=== PATIENT | female | born 1945 | race Hispanic/Latino ===

== ENCOUNTER 2018-03-23 15:37 | Outpatient (CLI) | payer MEDICARE, MEDICAID | END 2018-03-23 15:38 | disposition home or self-care (01) | LOC: BICMAMMO 15:37 | PROVIDERS: ATTEND Nurse Practitioner Family | DX: Z12.31 Encounter for screening mammogram for malignant neoplasm of breast (principal) | CPT/HCPCS: 77063; 77067 ==

== ENCOUNTER 2020-03-31 21:56 | Inpatient (IN) | payer MEDICAID, MEDICARE, SELFPAY ==
[~2020-03-31 21:56] MED LIST: Iopamidol 370 76% 100 ML VIAL ONE
[2020-03-31 22:29] LABS: #Basophils 0.1 thou/uL (0.0-0.2); #Eosinphils 0.2 thou/uL (0.0-0.7); #Lymphocytes 4.1 thou/uL (1.20-3.40); #Neutrophils 7.6 thou/uL (1.40-6.50); %Eosinophils 1.9 % (0.0-10.0); %Lymphocytes 31.2 % (21.0-51.0); %Monocytes 7.4 % (0.0-10.0); %Neutrophils 58.5 % (42.0-75.0); Hemoglobin 13.5 g/dL (12.0-16.0); Mean Corpuscular HGB CONC 33.4 g/dL (32.0-36.0); Mean Corpuscular Hemoglobin 30.6 pg (27.0-31.0); Mean Corpuscular Volume 91.7 fL (78.0-98.0); Mean Platelet Volume 7.7 fL (7.4-10.4); Platelet Count 380 thou/uL (130-400); RBC Distribution Width 12.1 % (11.5-14.5); White Blood Cell (WBC) Count 13.1 thou/uL (4.8-10.8)
[2020-03-31 22:38] LABS: PTT 28.8 sec (22.9-36.1)
--- NOTE | 2020-03-31 22:38 | CT ---
CT BRAIN 03/31/20 PROVIDED CLINICAL HISTORY: Headache. FINDINGS: The ventricular system appears normal in size and morphology. There is no evidence for intracranial hemorrhage or mass effect. There is a small amount of fluid within the right maxillary sinus. The ext racranial soft tissues and osseous structures appear otherwise unremarkable. IMPRESSION: 1. No evidence for intracranial hemorrhage or mass effect. 2. Small amount of fluid within the right maxillary sinus. Correlate with concerns for acute sin usitis. POS: ANICETO
[2020-03-31 22:55] LABS: ALT (SGPT) 23 U/L (8-55); AST (SGOT) 17 U/L (5-34); Albumin 4.3 g/dL (3.5-5.0); Alkaline Phosphatase 171 U/L (40-110); Anion Gap 13 mmol/L (10-20); BUN (Urea Nitrogen) 13 mg/dL (7.0-18.7); Bilirubin, Total 0.3 mg/dL (0.2-1.2); Calc. Creatinine Clearance 0 mL/min (70-130); Carbon Dioxide 23 mmol/L (22-29); Chloride 108 mmol/L (98-107); Estimated GFR-MDRD Greater than 90; Globulin 3.5 g/dL (2.4-3.5); Glucose 121 mg/dL (70-105); Potassium 3.6 mmol/L (3.5-5.1); Protein, Total 7.8 g/dL (6.0-8.3); Sodium 140 mmol/L (136-145)
--- NOTE | 2020-03-31 23:01 | CT ---
CT ANGIOGRAM GREAT VESSELS NECK WITH IV CONTRAST AND 3D MIP RECONSTRUCTIONS CT ANGIOGRAM BRAIN WITH IV CONTRAST AND 3D MIP RECONSTRUCTIONS 03/31/20 PROVIDED CLINICAL HISTORY: Syncopal episode. FINDINGS: There is a normal three vessel configuration of the great vessels at the arch. The great vessels of t he neck demonstrate no evidence for focal vessel stenosis or dissection. There is no evidence for focal vessel stenosis, branch occlusion, or aneurysm involving the intracran ial circulation. The incidentally imaged regional soft tissues appear unremarkable. IMPRESSION: 1. Normal CT angiogram great vessels neck. 2. Normal CT angiogram brain. POS: ANICETO
--- NOTE | 2020-03-31 23:05 | RAD ---
PORTABLE CHEST: 03/31/20 PROVIDED CLINICAL HISTORY: Headache. FINDINGS: Cardiac and mediastinal silhouette is within normal limits. No focal consolidation, pleural fluid or pneumothorax apparent. IMPRESSION: As above. POS: ANICETO
[2020-03-31 23:15] LABS: CKMB 0.7 ng/mL (0-6.6)
[2020-04-01] MEDS ORDERED: Docusate 100 MG CAP PO PRN (01:15)
[2020-04-01] MEDS ORDERED: Labetalol HCl 100 MG/20 ML VIAL SLOW IVP PRN (01:15)
[2020-04-01] MEDS ORDERED: Mag-Al 1200 mg/1200 mg/30 ML UDCUP PO PRN (01:15)
[2020-04-01] MEDS ORDERED: hydrALAZINE 20 MG/ML VIAL SLOW IVP PRN (01:15)
[2020-04-01] MEDS ORDERED: niCARdipine 25 MG in Sodium Chloride 0.9% 250 ML 240 ML IVPB PRN (01:15)
[2020-04-01] MEDS ORDERED: Communication Order-Pharmacy FS SCH (01:15)
--- NOTE | 2020-04-01 01:21 | PDOC.HHP ---
Hospitalist HPI - History of Present Illness R sided weakness, dysarthria History of Present Illness: Patient is a 41 year old female with PMH CVA, HTN who presents to ED for worsening of chronic R sided weakness and new dysarthria. Patient reports sudden syncopal episode today after a fit of coughing followed by worsening of chronic R sided weakness. there was no prodrome, remembers falling, did not hit head. family found patient on ground alert w/ GCS of 14. Patient had a CVA a year ago with residual R sided weakness which is now worsened than baseline, she also developed dysarthria. She takes losartan, ASA, statin and sees a PCP in [place] who prescribes her medications, unsure what her BP is at home since she does not check it. In ED, last known well time 2130 was within tPA window, patient adm inistered tPA and she reports improvement afterwards though still very weak. She had mildly elevated troponin, no chest pain or shortness of breath, EKG without acute findings. CT head and CTA head/neck did not show acute findings, CXR unremarkable, patient admitted to CCU for post tPA monitoring. Hospitalist ROS - Review of Systems Constitutional: denies: fever, chills, sweats, weakness, malaise, other Eyes: denies: pain, vision change, conjunctivae inflammation, eyelid inflammation, redness, other ENT: denies: ear pain, ear discharge, nose pain, nose discharge, nose congesti on, mouth pain, mouth swelling, throat pain, throat swelling, other Respiratory: denies: cough, dry, shortness of breath, hemoptysis, SOB with excertion, pleuritic pain, sputum, wheezing, other Cardiovascular: denies: chest pain, palpitations, orthopnea, paroxysmal noc. dyspnea, edema, light headedness, other Gastrointestinal: denies: nausea, vomiting, abdominal pain, diarrhea, constipation, melena, hematochezia, other Genitourinary: denies: dysuria, frequency, incontinence, hematuria, retention, other Musculoskeletal: denies: neck pain, shoulder pain, arm pain, back pain, hand pain, leg pain, foot pain, other Skin: denies: rash, lesions, sera, bruising, other Neurological: reports: weakness (R sided per HPI), numbness (R sided per HPI), change in speech (dysarthria, slow speech). denies: incoordination, confusion, seizures, other All other systems reviewed; all pertinent +/- noted in HPI/Subj - Medication Medications: losartan MonMar 31, 2020 23:33 BINU Gillette Lee tablet : Strength - 25 mg : ORAL Patient Dose: Unknown.unknown dose. atorvastatin MonMar 31, 2020 23:33 BINU Gillette Lee tablet : Strength - 20 mg : ORAL Patient Dose: 1 tab(s) Oral once a day (in the morning). aspirin oral MonMar 31, 2020 23:34 BINU Gillette Lee tablet : Strength - 81 mg : ORAL Patient Dose: 100 mg Oral once a day (in the morning). Hospitalist History - Past Medical History Other Medical History: HTN CVA - Past Surgical History Past Surgical History: reports: no pertinent history - Family History Family History: reports: no pertinent history - Social History Smoking Status: Never smoker Alcohol: reports: None Drugs: reports: none - Exam General Appearance: NAD, awake alert Eye: PERRL, anicteric sclera ENT: normocephalic atraumatic, no oropharyngeal lesions, moist mucosa Neck: supple, symmetric, no JVD, no thyromegaly, no lymphadenopathy, no carotid bruit Heart: RRR, no murmur, no gallops, no rubs, normal peripheral pulses Respiratory: CTAB, no wheezes, no rales, no ronchi, normal chest expansion, no tachypnea, normal percussion Gastrointestinal: soft, non-tender, non-distended, normal bowel sounds, no palpable masses, no hepatomegaly, no splenomegaly, no bruit Extremities: no cyanosis, no clubbing, no edema Skin: normal turgor, no lesions, no rashes Neurological - other findings: R side muscle group strength 2/5, reduced sensation R, no facial droop Musculoskeletal: normal tone, normal strength, no muscle wasting Psychiatric: normal affect, normal behavior, A&O x 3 Hospitalist Results - Labs Result Diagrams: 03/31/20 22:20 03/31/20 22:20 Lab results: WBC 13.1 thou/uL (4.8-10.8) H 03/31/20 22:20 Hgb 13.5 g/dL (12.0-16.0) 09/22/20 22:20 Hct 40.3 % (36.0-47.0) 03/31/20 22:20 MCV 91.7 fL (78.0-98.0) 03/31/20 22:20 Plt Count 380 thou/uL (130-400) 03/31/20 22:20 Neutrophils % 58.5 % (42.0-75.0) 03/31/20 22:20 Sodium 140 mmol/L (136-145) 03/31/20 22:20 Potassium 3.6 mmol/L (3.5-5.1) 03/31/20 22:20 Chloride 108 mmol/L (98-107) H 03/31/20 22:20 Carbon Dioxide 23 mmol/L (22-29) 03/31/20 22:20 BUN 13 mg/dL (7.0-18.7) 03/31/20 22:20 Creatinine 0.69 mg/dL (0.6-1.1) 03/31/20 22:20 Glucose 121 mg/dL (70-105) H 03/31/20 22:20 Calcium 9.0 mg/dL (7.8-10.44) 03/31/20 22:20 Total Bilirubin 0.3 mg/dL (0.2-1.2) 03/31/20 22:20 AST 17 U/L (5-34) 03/31/20 22:20 ALT 23 U/L (8-55) 03/31/20 22:20 Alkaline Phosphatase 171 U/L (40-110) H 03/31/20 22:20 CK-MB (CK-2) 0.7 ng/mL (0-6.6) 03/31/20 22:20 Troponin I 0.045 ng/mL (< 0.028) H 03/31/20 22:20 Serum Total Protein 7.8 g/dL (6.0-8.3) 03/31/20 22:20 Albumin 4.3 g/dL (3.5-5.0) 03/31/20 22:20 Additional comment: ED labs, imaging reports, ed documents reviewed RADIOLOGY MonMar 31, 2020 23:50 DO Mcknight Matthew XR Chest 1 View Portable Observe DT: MonMar 31, 2020 22:25 CXRP PORTABLE CHEST: 03/31/20 PROVIDED CLINICAL HISTORY: Headache. FINDINGS: Cardiac and mediastinal silhouette is within normal limits. No focal consolidation, pleural fluid or pneumothorax apparent. IMPRESSION: As above. POS: JMT . RADIOLOGY MonMar 31, 2020 23:50 DO Mcknight Matthew CTA Angio Neck W WO Con Observe DT: MonMar 31, 2020 22:[address] ANGIOGRAM GREAT VESSELS NECK WITH IV CONTRAST AND 3D MIP RECONSTRUCTIONS CT ANGIOGRAM BRAIN WITH IV CONTRAST AND 3D MIP RECONSTRUCTIONS 03/31/20 PROVIDED CLINICAL HISTORY: Syncopal episode. FINDINGS: There is a normal three vessel configuration of the great vessels at the arch. The great vessels of t he neck demonstrate no evidence for focal vessel stenosis or dissection. There is no evidence for focal vessel stenosis, branch occlusion, or aneurysm involving the intracran ial circulation. The incidentally imaged regional soft tissues appear unremarkable. IMPRESSION: 1. Normal CT angiogram great vessels neck. 2. Normal CT angiogram brain. POS: JMT . RADIOLOGY MonMar 31, 2020 23:50 DO Mcknight Matthew CTA Angio Head W WO Con Observe DT: MonMar 31, [address] ANGIOGRAM GREAT VESSELS NECK WITH IV CONTRAST AND 3D MIP RECONSTRUCTIONS CT ANGIOGRAM BRAIN WITH IV CONTRAST AND 3D MIP RECONSTRUCTIONS 03/31/20 PROVIDED CLINICAL HISTORY: Syncopal episode. FINDINGS: There is a normal three vessel configuration of the great vessels at the arch. The great vessels of t he neck demonstrate no evidence for focal vessel stenosis or dissection. There is no evidence for focal vessel stenosis, branch occlusion, or aneurysm involving the intracran ial circulation. The incidentally imaged regional soft tissues appear unremarkable. IMPRESSION: 1. Normal CT angiogram great vessels neck. 2. Normal CT angiogram brain. POS: JMT . RADIOLOGY MonMar 31, 2020 23:[address] Brain WO Con Observe DT: MonMar 31, [address] BRAIN 03/31/20 PROVIDED CLINICAL HISTORY: Headache. FINDINGS: The ventricular system appears normal in size and morphology. There is no evidence for intracranial hemorrhage or mass effect. There is a small amount of fluid within the right maxillary sinus. The ext racranial soft tissues and osseous structures appear otherwise unremarkable. IMPRESSION: 1. No evidence for intracranial hemorrhage or mass effect. 2. Small amount of fluid within the right maxillary sinus. Correlate with concerns for acute sin usitis. POS: JMT - EKG Interpretation EKG: NSR rate [address] changes or AVB Hospitalist H&P A/P - Plan Plan: Patient is a 41 year old female with PMH CVA, HTN who presents to ED for worsening of chronic R sided weakness and new dysarthria. # presumed acute ischmic stroke s/p tPA # elevated troponin # hyperglycemia sudden syncopal episode 2129 today after a fit of coughing followed by worsening of chronic R sided weakness. family found patient on ground alert w/ GCS of 14. Patient had a CVA a year ago with residual R sided weakness which is now worsened than baseline, she also developed dysarthria. She takes losartan, ASA, statin and sees a PCP in [place] who prescribes her medications, unsure what her BP is at home since she does not check it. In ED, last known well time 2129 was within tPA window, patient administered tPA and she reports improvement afterwards though still very weak. She had mildly elevated troponin, no chest pain or shortness of breath, EKG without acute findings. CT head and CTA head/neck did not show acute findings, CXR unremarkable, patient admitted to CCU for post tPA monitoring. - admit to CCU - monitor overnight, no lab draws, repeat CT head in AM, consult neurology/stroke team, MRI brain - echo - for elevated sugar, check A1C, hold SSI for 24 hours after tPA - permissive HTN per order set, monitor BP # leukocytosis - likely secondary to above acute stressors, monitor closely DVT ppx - start in 24 hours GI ppx full code
[2020-04-01] MEDS ORDERED: Ondansetron ODT 4 MG TAB SL PRN (01:30)
[2020-04-01] MEDS ORDERED: Ondansetron PF 4 MG/2 ML Vial IVP PRN (01:30)
[2020-04-01] MEDS: Sodium Chloride 0.9% 1,000 ML IV SCH ×2 (01:45→12:15)
[2020-04-01 01:49] LABS: Troponin I 0.026 ng/mL (< 0.028)
[2020-04-01 06:18] LABS: PTT 30.8 sec (22.9-36.1); Prothrombin Time 13.5 sec (12.0-14.7)
[2020-04-01 06:38] LABS: ALT (SGPT) 20 U/L (8-55); AST (SGOT) 17 U/L (5-34); Albumin 3.6 g/dL (3.5-5.0); Alkaline Phosphatase 141 U/L (40-110); Anion Gap 12 mmol/L (10-20); BUN (Urea Nitrogen) 10 mg/dL (7.0-18.7); Bilirubin, Total 0.3 mg/dL (0.2-1.2); Calc. Creatinine Clearance 152 mL/min (70-130); Calcium 8.4 mg/dL (7.8-10.44); Carbon Dioxide 22 mmol/L (22-29); Cardiac Risk 4.7 (Less than 4.5); Chloride 108 mmol/L (98-107); Cholesterol 186 mg/dl (< 200 Desired); Estimated GFR-MDRD Greater than 90; Glucose 119 mg/dL (70-105); HDL Cholesterol 40 mg/dL (>60 Neg Risk); LDL Cholesterol, Calculated 108 mg/dL; Potassium 3.6 mmol/L (3.5-5.1); Protein, Total 6.6 g/dL (6.0-8.3); Sodium 138 mmol/L (136-145); Triglycerides 191 mg/dL (Less than 150)
[2020-04-01 06:39] LABS: Troponin I 0.027 ng/mL (< 0.028)
--- NOTE | 2020-04-01 07:39 | PDOC.HOSPP ---
- Subjective Encounter Date: 04/01/20 Encounter Time: 07:38 Subjective: alert, oriented, no complaints - Objective Vital Signs & Weight: Vital Signs (12 hours) Temp Pulse Resp BP Pulse Ox 04/01/20 04:00 98.4 F 04/01/20 01:15 98.0 F 65 20 119/68 100 04/01/20 01:00 98.0 F 99 04/01/20 00:51 98.0 F 65 20 115/69 100 Weight Weight 172 lb 6.424 oz Most Recent Monitor Data Heart Rate from ECG 66 NIBP 113/66 NIBP BP-Mean 81 Respiration from ECG 20 SpO2 100 I&O: 03/31/20 04/01/20 04/02/20 06:59 06:59 06:59 Intake Total 510 Output Total 300 Balance 210 Result Diagrams: 03/31/20 22:20 04/01/20 06:00 Additional Labs: Accuchecks 03/31/20 22:27 POC Glucose 134 H Hospitalist ROS - Medication Medications: Active Medications Generic Name Dose Route Start Last Admin Trade Name Isaak PRN Reason Stop Dose Admin Sodium Chloride 1,000 mls @ 100 mls/hr 04/01/20 01:30 04/01/20 01:45 Normal Saline 0.9% IV 1,000 mls .Q10H MANJINDER Administration Miscellaneous Information 1 each 04/01/20 01:15 04/01/20 02:44 Communication Order-Pharmacy FS 04/01/20 23:59 Not Given NOW MANJINDER - Exam Neck: no JVD Heart: RRR, no murmur Respiratory: CTAB Gastrointestinal: soft, normal bowel sounds Extremities: no edema Neurological - other findings: R spasyic hemiplegia Hosp A/P (1) Syncope Code(s): R55 - SYNCOPE AND COLLAPSE Status: Acute (2) HTN (hypertension) Code(s): I10 - ESSENTIAL (PRIMARY) HYPERTENSION Status: Acute (3) Dyslipidemia Code(s): E78.5 - HYPERLIPIDEMIA, UNSPECIFIED Status: Acute (4) Hemiplegia affecting dominant side Code(s): G81.90 - HEMIPLEGIA, UNSPECIFIED AFFECTING UNSPECIFIED SIDE Status: Acute - Plan post TPA MRI pending statin, antihypertansive prolactin level discuss with neuro
--- NOTE | 2020-04-01 07:49 | CT ---
CT OF THE BRAIN WITHOUT CONTRAST: Date: 04/01/2020 COMPARISON: 03/31/2020. HISTORY: Follow-up stroke with syncope and headache. TECHNIQUE: Multiple contiguous axial images were obtained in a CT of the brain without contrast. FINDINGS: The brain is normal in morphology and attenuation without focal lesions or confluent areas of infarct ion. There is no evidence of hydrocephalus, intracranial hemorrhage, or extra-axial fluid collection. The calvarium and overlying soft tissues are unremarkable. The visualized paranasal sinuses and masto id air cells are well aerated. IMPRESSION: No evidence of acute intracranial abnormality. POS: EAA
[2020-04-01] MEDS: Losartan 25 MG TAB PO SCH (09:51)
--- NOTE | 2020-04-01 13:05 | CON ---
NEUROLOGY CONSULTATION DATE OF CONSULTATION: 04/01/2020 REASON FOR CONSULTATION: Right hemiparesis, dysarthria, syncope. HISTORY OF PRESENT ILLNESS: Ms. Mikki Anderson is a 41-year-old female with medical history significant for prior stroke, hypertension, presented to the emergency room with worsening right-sided weakness and new onset dysarthria. The history is taken from the patient and the with the help of a still operator gin. According to the , around 7:30 p.m. yesterday she was coughing and was short of breath and passed out. When she woke up, she was confused and unable to talk and apparently, the episode lasted until 1:00 a.m. Per patient, she had residual right-sided weakness from old stroke which became worsened yesterday evening. She has been compliant with the medication and has been taking aspirin, statin, and losartan, which was prescribed by a PCP in [place]. In the emergency room, she arrived around 2130 hours and was administered tPA with improvement of the symptoms afterwards speech is almost back to the baseline. CT head was done, which was negative for acute intracranial pathology. CT of the head and neck was also unremarkable. Chest x-ray was unremarkable. She was admitted to the CCU for post tPA monitoring. - Review of Systems Constitutional: denies: fever, chills, sweats, weakness, malaise, other Eyes: denies: pain, vision change, conjunctivae inflammation, eyelid inflammation, redness, other ENT: denies: ear pain, ear discharge, nose pain, nose discharge, nose congestion, mouth pain, mouth swelling, throat pain, throat swelling, other Respiratory: denies: cough, dry, shortness of breath, hemoptysis, SOB with excertion, pleuritic pain, sputum, wheezing, other Cardiovascular: denies: chest pain, palpitations, orthopnea, paroxysmal noc. dyspnea, edema, light headedness, other Gastrointestinal: denies: nausea, vomiting, abdominal pain, diarrhea, constipation, melena, hematochezia, other Genitourinary: denies: dysuria, frequency, incontinence, hematuria, retention, other Musculoskeletal: denies: neck pain, shoulder pain, arm pain, back pain, hand pain, leg pain, foot pain, other Skin: denies: rash, lesions, sera, bruising, other Neurological: reports: weakness numbness change in speech . denies: incoordination, confusion, seizures, other All other systems reviewed; all pertinent +/- noted in HPI/Subj HOME MEDICATIONS: 1. Losartan 25 mg daily. 2. Atorvastatin 20 mg once daily. 3. Aspirin 81 mg daily. PAST MEDICAL HISTORY: Hypertension, prior CVA. PAST SURGICAL HISTORY: Not significant. FAMILY HISTORY: No family history of stroke. SOCIAL HISTORY: The patient denies smoking, alcohol, illegal drug use. - Objective Vital Signs & Weight: Vital Signs (12 hours) Temp Pulse Resp BP Pulse Ox 04/01/20 04:00 98.4 F 04/01/20 01:15 98.0 F 65 20 119/68 100 04/01/20 01:00 98.0 F 99 04/01/20 00:51 98.0 F 65 20 115/69 100 Weight Weight 172 lb 6.424 oz Most Recent Monitor Data Heart Rate from ECG 66 NIBP 113/66 NIBP BP-Mean 81 Respiration from ECG 20 SpO2 100 I&O: 03/31/20 04/01/20 04/02/20 06:59 06:59 06:59 Intake Total 510 Output Total 300 Balance 210 Additional Labs: Accuchecks 03/31/20 22:27 POC Glucose 134 H Active Medications Generic Name Dose Route Start Last Admin Trade Name Isaak PRN Reason Stop Dose Admin Sodium Chloride 1,000 mls @ 100 mls/hr 04/01/20 01:30 04/01/20 01:45 Normal Saline 0.9% IV 1,000 mls .Q10H MANJINDER Administration Miscellaneous Information 1 each 04/01/20 01:15 04/01/20 02:44 Communication Order-Pharmacy FS 04/01/20 23:59 Not Given NOW [facility] - Physical Exam General Appearance: NAD, awake alert Eye: PERRL, anicteric sclera ENT: normocephalic atraumatic, no oropharyngeal lesions, moist mucosa Neck: supple, symmetric, no JVD, no thyromegaly, no lymphadenopathy, no carotid bruit Heart: RRR, no murmur, no gallops, no rubs, normal peripheral pulses Respiratory: CTAB, no wheezes, no rales, no ronchi, normal chest expansion, no tachypnea, normal percussion Gastrointestinal: soft, non-tender, non-distended, normal bowel sounds, no palpable masses, no hepatomegaly, no splenomegaly, no bruit Extremities: no cyanosis, no clubbing, no edema Skin: normal turgor, no lesions, no rashes Neurological -Mental status; the patient is alert and oriented to person, place, and time. Speech is clear. Cranial nerves 2 through 12 intact. Motor, muscle tone and bulk are normal. Strength, right hemiparesis. . Sensory, decreased sensation on the right . Gait deferred due to patient's safety reason. DATA REVIEWED: I reviewed the labs, which was consistent with hyperglycemia, glucose of 121 and white count of 13.1. Head CT was reviewed, which was negative for acute intracranial pathology. CTA of the head and neck was negative for acute hemodynamically significant stenosis. Chest x-ray was unremarkable. EKG showed normal sinus rhythm with heart rate of 76 beats per minute. Lab results: WBC 13.1 thou/uL (4.8-10.8) H 03/31/20 22:20 Hgb 13.5 g/dL (12.0-16.0) 03/31/20 22:20 Hct 40.3 % (36.0-47.0) 03/31/20 22:20 MCV 91.7 fL (78.0-98.0) 03/31/20 22:20 Plt Count 380 thou/uL (130-400) 03/31/20 22:20 Neutrophils % 58.5 % (42.0-75.0) 03/31/20 22:20 Sodium 140 mmol/L (136-145) 03/31/20 22:20 Potassium 3.6 mmol/L (3.5-5.1) 03/31/20 22:20 Chloride 108 mmol/L (98-107) H 03/31/20 22:20 Carbon Dioxide 23 mmol/L (22-29) 03/31/20 22:20 BUN 13 mg/dL (7.0-18.7) 03/31/20 22:20 Creatinine 0.69 mg/dL (0.6-1.1) 03/31/20 22:20 Glucose 121 mg/dL (70-105) H 03/31/20 22:20 Calcium 9.0 mg/dL (7.8-10.44) 03/31/20 22:20 Total Bilirubin 0.3 mg/dL (0.2-1.2) 03/31/20 22:20 AST 17 U/L (5-34) 03/31/20 22:20 ALT 23 U/L (8-55) 03/31/20 22:20 Alkaline Phosphatase 171 U/L (40-110) H 03/31/20 22:20 CK-MB (CK-2) 0.7 ng/mL (0-6.6) 03/31/20 22:20 Troponin I 0.045 ng/mL (< 0.028) H 03/31/20 22:20 Serum Total Protein 7.8 g/dL (6.0-8.3) 03/31/20 22:20 Albumin 4.3 g/dL (3.5-5.0) 03/31/20 22:20 ASSESSMENT AND PLAN: (1) Syncope Code(s): R55 - SYNCOPE AND COLLAPSE Status: Acute (2) HTN (hypertension) Code(s): I10 - ESSENTIAL (PRIMARY) HYPERTENSION Status: Acute (3) Dyslipidemia Code(s): E78.5 - HYPERLIPIDEMIA, UNSPECIFIED Status: Acute (4) Hemiplegia affecting dominant side Code(s): G81.90 - HEMIPLEGIA, UNSPECIFIED AFFECTING UNSPECIFIED SIDE Status: Acute Ms. Mikki Anderson is a 41-year-old female with medical history significant for prior cerebrovascular accident and hypertension, presented to the emergency room with an episode of loss of consciousness followed by confusion and worsening right-sided weakness with new dysarthria. There is also concern about seizure with Haja paralysis since prior stroke had become epileptogenic focus. She is status post tPA and has been stable. Continue neuro checks every [address] 24 hours post tPA to rule out bleed. Telemetry. Hold antiplatelets and anticoagulants for the next 24 hours post tPA. Continue stroke workup once the patient is stable with MRI of the brain and 2D echocardiogram. Continue telemetry. EEG reviewed and was negative for seizure activity. Continue home medications. Continue medical management per primary team. PT/OT/Speech. Permissive control of blood pressure at this time. Strict control of blood glucose. Check hemoglobin A1c, fasting lipid panel, and TSH. DVT prophylaxis with SCD. We will continue to follow. Thank you for the consult. Job ID: [id number] [facility]ITALCarly
[2020-04-01] MEDS: Acetaminophen 325 MG TAB PO PRN ×2 (13:57→20:25)
--- NOTE | 2020-04-01 14:04 | EEG ---
DATE OF SERVICE: 04/01/2020 ATTENDING PHYSICIAN: Narcisa Lopez MD This EEG was performed using 24-channel [employer] video digital EEG machine with 24-disk electrodes. This was an extended 2 hours 4 minutes of inpatient video EEG recording. Digital analysis of the EEG was done for spike and seizure detection, which revealed no abnormalities. BACKGROUND: The posterior background rhythm was 9 to 10 Hz. The background rhythm attenuates with eye opening and enhances with eye closure. HYPERVENTILATION: Not performed. PHOTIC STIMULATION: No significant response seen with photic stimulation. SLEEP: Drowsiness and sleep are observed. EEG DIAGNOSIS: Normal awake, drowsy, and sleep EEG. Job ID: [id number]
--- NOTE | 2020-04-01 15:25 | MRI ---
Exam: Brain MRI without contrast HISTORY: CVA. Syncope. Headache. COMPARISON: None FINDINGS: Calvarial marrow signal intensity: T1 marrow signal intensity of the calvarium. Correlate for anemia or marrow infiltrative process. Gradient echo sequence: No hemorrhage Brain parenchyma: No mass, mass effect or midline shift. Brain volume, age-appropriate. Cortical richards-white matter differentiation: Preserved Restricted diffusion: Central arterial flow voids are maintained. Absent restricted diffusion White matter signal intensities:No significant T2 or FLAIR white matter hyperintensities. Sinuses: Adequate aeration of the paranasal sinuses and mastoid air cells. IMPRESSION: 1. Absent restricted diffusion. No acute infarct. 2. T1 marrow signal hypointensity of the calvarium. Correlate for marrow infiltrative process versus anemia.
[2020-04-01] MEDS: Atorvastatin Calcium 20 MG TAB PO SCH (20:25)
[2020-04-01] MEDS ORDERED: Atorvastatin Calcium 40 MG TAB PO SCH (21:00)
--- NOTE | 2020-04-02 00:55 | CON ---
DATE OF CONSULTATION: 04/01/2020 HISTORY OF PRESENT ILLNESS: Ms. Anderson is a 41-year-old female. Her is Macedonian-speaking. He provided most of the information with one of the nurses, who interpreted. She has had a stroke in the past apparently. It is unclear whether or not she has a hypercoagulable state. She also has a history of hypertension. She presented with right-sided weakness and dysarthria. She received tPA in the emergency room. Apparently, her right-sided strength has improved. I was consulted to see her because of her presence in the ICU. Her speech has improved as well. PAST MEDICAL HISTORY: Remarkable for hypertension and CVA. FAMILY HISTORY: Negative for hypercoagulable states or CVA. MEDICATIONS: She is on losartan, atorvastatin, and aspirin prior to admission. SOCIAL HISTORY: She is nonsmoker, nondrinker, nondrug user. REVIEW OF SYSTEMS: Otherwise negative. PHYSICAL EXAMINATION: VITAL SIGNS: Blood pressure 113/66, heart rate is 80 respiratory rate is 20. GENERAL: She is in no distress. She is having an EEG done when I saw her. LUNGS: Clear. HEART: Regular rhythm. ABDOMEN: Soft. EXTREMITIES: Without clubbing, cyanosis, or edema. She is slightly weak to a right-sided triage register nurse when I evaluated her. She has had an echocardiogram, it shows normal ejection fraction. IMPRESSION: Cerebrovascular accident. With her history of another CVA in the past and the fact that she is in her 40s, I would wonder about a hypercoagulable state such as antithrombin III deficiency. I will send the thrombosis panel. I know this is not likely, but it is certainly something that needs to be ruled out in my opinion. I met with the and answered all of his questions via the nurse longwall headgate operator. TIME SPENT: This is a 70-minute consult, 50% of the time was spent on the unit, coordinating care. Job ID: [id number] MTDD
[2020-04-02 01:25] LABS: INR-International Normal Ratio 1.1; PTT 30.5 sec (22.9-36.1); Prothrombin Time 13.8 sec (12.0-14.7)
[2020-04-02 01:26] LABS: D-Dimer Test 0.59 *mcg/mL (0.27-0.43)
[2020-04-02] MEDS: Sodium Chloride 0.9% 1,000 ML IV SCH ×2 (02:12→02:13)
[2020-04-02 03:51] LABS: Hemoglobin A1c 6.1 % (4.0-6.0)
[2020-04-02] MEDS: Losartan 25 MG TAB PO SCH (08:51)
[2020-04-02] MEDS: Acetaminophen 325 MG TAB PO PRN (08:51)
[2020-04-02] MEDS: Enoxaparin Sodium 40 MG/0.4 ML SYRINGE SC SCH (08:51)
[2020-04-02] MEDS ORDERED: Aspirin 325 mg Enteric Coated Tablet PO SCH (09:00)
[2020-04-02 11:02] VITALS: BMI 30.5
[2020-04-02 11:12] LABS: Factor VIII Test 206.2 % ACTIVE (56-157)
--- NOTE | 2020-04-02 11:34 | PDOC.HOSPP ---
- Subjective Encounter Date: 04/02/20 Encounter Time: 11:22 Subjective: alert, oriented , back to normal for her - Objective Vital Signs & Weight: Vital Signs (12 hours) Temp Pulse Pulse BP BP Pulse Ox Pulse Ox 04/02/20 10:32 80 84 103/68 114/65 99 04/02/20 08:00 98.1 F 100 04/02/20 04:00 97.6 F 04/02/20 00:00 98.5 F Pulse Ox 04/02/20 10:32 100 04/02/20 08:00 04/02/20 04:00 04/02/20 00:00 Weight Weight 173 lb 4.533 oz Most Recent Monitor Data Heart Rate from ECG 66 NIBP 110/68 NIBP BP-Mean 82 Respiration from ECG 20 SpO2 100 I&O: 04/01/20 04/02/20 04/03/20 06:59 06:59 06:59 Intake Total 510 1939 Output Total 300 840 300 Balance 210 1099 -300 Result Diagrams: 03/31/20 22:20 04/01/20 06:00 Hospitalist ROS - Medication Medications: Active Medications Generic Name Dose Route Start Last Admin Trade Name Freq PRN Reason Stop Dose Admin Acetaminophen 650 mg 04/01/20 01:15 04/02/20 08:51 Acetaminophen 325 Mg Tab PO 650 mg Q6H PRN Administration Headache/Fever/Mild Pain (1-3) Aspirin 325 mg 04/02/20 09:00 04/02/20 08:51 Aspirin 325 Mg Enteric Coated Tablet PO 325 mg DAILY MANJINDER Administration Atorvastatin Calcium 20 mg 04/01/20 21:00 04/01/20 20:25 Atorvastatin Calcium 20 Mg Tab PO 20 mg HS MANJINDER Administration Enoxaparin Sodium 40 mg 04/02/20 09:00 04/02/20 08:51 Enoxaparin Sodium 40 Mg/0.4 Ml Syringe SC 40 mg 0900 MANJINDER Administration Sodium Chloride 1,000 mls @ 100 mls/hr 04/01/20 01:30 04/02/20 02:13 Normal Saline 0.9% IV 1,000 mls .Q10H MANJINDER Administration Losartan Potassium 25 mg 04/01/20 09:00 04/02/20 08:51 Losartan 25 Mg Tab PO 25 mg DAILY MANJINDER Administration Sodium Chloride 10 ml 04/01/20 09:00 04/01/20 20:26 Flush - Normal Saline 10 Ml Syringe IVF 10 ml Q12HR MANJINDER Administration - Exam General Appearance: awake alert Neck: no JVD Heart: RRR, no murmur Respiratory: CTAB Gastrointestinal: soft, normal bowel sounds Extremities: no edema Neurological: cranial nerve grossly intact Neurological - other findings: strength 4+ R side, 5 on L Hosp A/P (1) TIA (transient ischemic attack) Code(s): G45.9 - TRANSIENT CEREBRAL ISCHEMIC ATTACK, UNSPECIFIED Status: Acute (2) Syncope Code(s): R55 - SYNCOPE AND COLLAPSE Status: Acute (3) HTN (hypertension) Code(s): I10 - ESSENTIAL (PRIMARY) HYPERTENSION Status: Acute Qualifiers: Hypertension type: essential hypertension Qualified Code(s): I10 - Essential (primary) hypertension (4) Dyslipidemia Code(s): E78.5 - HYPERLIPIDEMIA, UNSPECIFIED Status: Acute (5) Hemiplegia affecting dominant side Code(s): G81.90 - HEMIPLEGIA, UNSPECIFIED AFFECTING UNSPECIFIED SIDE Status: Acute - Plan MRI no damage obtain CT braib to R/O bleeding then, ASA, plavix, High dose statin
--- NOTE | 2020-04-02 11:43 | PRG ---
DATE OF SERVICE: 04/02/2020 SUBJECTIVE: Ms. Anderson has significant improvement in right-sided strength today. OBJECTIVE: VITAL SIGNS: Have been stable. Blood pressure is 110/68, heart rate is in the 60s, and respiratory rate is 20. LUNGS: Clear. HEART: Regular rhythm. ABDOMEN: Soft. EXTREMITIES: Without edema. LABORATORY DATA: She has no new labs today. Hemoglobin A1c 6.1. 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 Surprisingly, no infarct was seen on MRI. We would wonder if this is Haja paralysis since the MRI did not show any CVA. The possibility is that tPA was effective. In any event, Neurology is following. We will follow as long as she is in the Critical Care Unit. I would think she would be a candidate to move out of the Critical Care Unit. Job ID: [id number]
--- NOTE | 2020-04-02 12:45 | PDOC.NEUPN ---
- Subjective Encounter Date: 04/02/20 Subjective: Patient feels much better today. History is obtained with the help of a percussion instructor. Rounds were conducted in conjunction with the primary attending Dr. López. Weakness improved and speech is back to the baseline. MRI brain is negative for acute intracranial process - Objective Vital Signs & Weight: Vital Signs (12 hours) Temp Pulse Pulse BP BP Pulse Ox Pulse Ox 04/02/20 10:32 80 84 103/68 114/65 99 04/02/20 08:00 98.1 F 100 04/02/20 04:00 97.6 F Pulse Ox 04/02/20 10:32 100 04/02/20 08:00 04/02/20 04:00 Weight Weight 173 lb 4.533 oz Most Recent Monitor Data Heart Rate from ECG 74 NIBP 110/68 NIBP BP-Mean 82 Respiration from ECG 26 SpO2 100 I&O: 04/01/20 04/02/20 04/03/20 06:59 06:59 06:59 Intake Total 510 1939 Output Total 300 840 500 Balance 210 1099 -500 Result Diagrams: 03/31/20 22:20 04/01/20 06:00 Radiology Reviewed by me: Yes EKG Reviewed by me: Yes ROS - Review of Systems Constitutional: denies: fever, chills, sweats, weakness, malaise, other Eyes: denies: pain, vision change, conjunctivae inflammation, eyelid inflammation, redness, other ENT: denies: ear pain, ear discharge, nose pain, nose discharge, nose congestion, mouth pain, mouth swelling, throat pain, throat swelling, other Respiratory: denies: cough, dry, shortness of breath, hemoptysis, SOB with excertion, pleuritic pain, sputum, wheezing, other Cardiovascular: reports: no pertinent history Gastrointestinal: denies: nausea, vomiting, abdominal pain, diarrhea, constipation, melena, hematochezia, other Genitourinary: denies: dysuria, frequency, incontinence, hematuria, retention, other Musculoskeletal: denies: neck pain, shoulder pain, arm pain, back pain, hand pain, leg pain, foot pain, other Skin: denies: rash, lesions, sera, bruising, other Neurological: reports: weakness, change in speech - Medication Medications: Active Medications Generic Name Dose Route Start Last Admin Trade Name Freq PRN Reason Stop Dose Admin Acetaminophen 650 mg 04/01/20 01:15 04/02/20 08:51 Acetaminophen 325 Mg Tab PO 650 mg Q6H PRN Administration Headache/Fever/Mild Pain (1-3) Aspirin 325 mg 04/02/20 09:00 04/02/20 08:51 Aspirin 325 Mg Enteric Coated Tablet PO 325 mg DAILY MANJINDER Administration Atorvastatin Calcium 20 mg 04/01/20 21:00 04/01/20 20:25 Atorvastatin Calcium 20 Mg Tab PO 20 mg HS MANJINDER Administration Enoxaparin Sodium 40 mg 04/02/20 09:00 04/02/20 08:51 Enoxaparin Sodium 40 Mg/0.4 Ml Syringe SC 40 mg 0900 MANJINDER Administration Sodium Chloride 1,000 mls @ 100 mls/hr 04/01/20 01:30 04/02/20 02:13 Normal Saline 0.9% IV 1,000 mls .Q10H MANJINDER Administration Losartan Potassium 25 mg 04/01/20 09:00 04/02/20 08:51 Losartan 25 Mg Tab PO 25 mg DAILY MANJINDER Administration Sodium Chloride 10 ml 04/01/20 09:00 04/02/20 12:00 Flush - Normal Saline 10 Ml Syringe IVF Not Given Q12HR MANJINDER - Exam General Appearance: awake alert Eye: PERRL ENT: normocephalic atraumatic Neck: supple Respiratory: CTAB Cardiovascular: RRR Gastrointestinal: soft Extremities: no cyanosis Skin: normal turgor Neurological: no new deficit Neurological - other findings: right hemiparesis improved PSYCH: normal affect, normal behavior, A&O x 3 Results - Labs Result Diagrams: 03/31/20 22:20 04/01/20 06:00 Lab results: WBC 13.1 thou/uL (4.8-10.8) H 03/31/20 22:20 Hgb 13.5 g/dL (12.0-16.0) 03/31/20 22:20 Hct 40.3 % (36.0-47.0) 03/31/20 22:20 MCV 91.7 fL (78.0-98.0) 03/31/20 22:20 Plt Count 380 thou/uL (130-400) 03/31/20 22:20 Neutrophils % 58.5 % (42.0-75.0) 03/31/20 22:20 Sodium 138 mmol/L (136-145) 04/01/20 06:00 Potassium 3.6 mmol/L (3.5-5.1) 04/01/20 06:00 Chloride 108 mmol/L (98-107) H 04/01/20 06:00 Carbon Dioxide 22 mmol/L (22-29) 04/01/20 06:00 BUN 10 mg/dL (7.0-18.7) 04/01/20 06:00 Creatinine 0.59 mg/dL (0.6-1.1) L 04/01/20 06:00 Glucose 119 mg/dL (70-105) H 04/01/20 06:00 Calcium 8.4 mg/dL (7.8-10.44) 04/01/20 06:00 Total Bilirubin 0.3 mg/dL (0.2-1.2) 04/01/20 06:00 AST 17 U/L (5-34) 04/01/20 06:00 ALT 20 U/L (8-55) 04/01/20 06:00 Alkaline Phosphatase 141 U/L (40-110) H 04/01/20 06:00 CK-MB (CK-2) 0.7 ng/mL (0-6.6) 03/31/20 22:20 Troponin I 0.027 ng/mL (< 0.028) 04/01/20 06:00 Serum Total Protein 6.6 g/dL (6.0-8.3) 04/01/20 06:00 Albumin 3.6 g/dL (3.5-5.0) 04/01/20 06:00 - Radiology Interpretation MRI - head Status: image reviewed by me, report reviewed by me Additional Comment: No acute intracranial process PN A/P (1) TIA (transient ischemic attack) Code(s): G45.9 - TRANSIENT CEREBRAL ISCHEMIC ATTACK, UNSPECIFIED Status: Acute (2) Dyslipidemia Code(s): E78.5 - HYPERLIPIDEMIA, UNSPECIFIED Status: Acute (3) HTN (hypertension) Code(s): I10 - ESSENTIAL (PRIMARY) HYPERTENSION Status: Acute Qualifiers: Hypertension type: essential hypertension Qualified Code(s): I10 - Essential (primary) hypertension (4) Hemiplegia affecting dominant side Code(s): G81.90 - HEMIPLEGIA, UNSPECIFIED AFFECTING UNSPECIFIED SIDE Status: Acute (5) Syncope Code(s): R55 - SYNCOPE AND COLLAPSE Status: Acute - Plan Daily Plan: PT/OT, speech therapy, DVT proph w/SCDs 41-year-old female with a history of prior prior stroke presented with acute onset worsening right-sided weakness and slurred speech. The symptoms almost resolved and patient is back to the baseline. She is status post TPA. Most likely transient ischemic attack. Haja's paralysis is also in the differential but low since EEG is is negative for underlying cortical irritability. MRI of the brain reviewed and was negative for acute intracranial pathology. CTA of the head and neck did not reveal any hemodynamically dynamically significant stenosis. EEG reviewed and was negative for underlying cortical irritability. Neurochecks every [address] noncontrast 24 hours post TPA to rule out bleed. If head CT is negative then consider starting aspirin and adding Plavix for secondary stroke prevention. Start high intensity statin for secondary stroke prevention. Strict control of blood pressure and blood glucose. Check hemoglobin A1c, fasting lipid panel and TSH. Telemetry Follow-up on thrombosis panel since patient had stroke at young age and determine the need of long-term anticoagulation. 2D echo completed. Left ventricular ejection fraction is 55 to 60%. No thrombus or PFO. PT/OT/speech. Plan discussed in detail with the patient, nursing staff and the primary attending Dr. López.
--- NOTE | 2020-04-02 13:13 | CT ---
Head CT without contrast 04/02/2020: COMPARISON: 04/01/2020 HISTORY: Evaluate following TPA administration TECHNIQUE: Axial CT imaging at 5 mm intervals from vertex through skull base without contrast FINDINGS: The visualized paranasal sinuses and mastoid air cells are well-aerated. No intracranial hemorrhage, midline shift, mass effect, or ventricular enlargement. IMPRESSION: No acute findings.
--- NOTE | 2020-04-02 16:10 | PDOC.EVN ---
Event Note - Event Note Event Note: CT brain- no bleeding. start plavix
[2020-04-02] MEDS ORDERED: Clopidogrel Bisulfate 300 MG TAB PO SCH (16:15)
[2020-04-02] MEDS: Atorvastatin Calcium 20 MG TAB PO SCH (21:31)
--- NOTE | 2020-04-03 04:06 | PDOC.HOSPP ---
- Subjective Encounter Date: 04/03/20 Encounter Time: 09:00 Subjective: no overnight events. this morning, feeling well and has no complaints. TIA symtpoms resolved - Objective Vital Signs & Weight: Vital Signs (12 hours) Temp Pulse Resp BP Pulse Ox 04/03/20 04:00 97.6 F 67 16 97/52 L 96 04/03/20 01:58 97 04/02/20 23:44 97.8 F 62 18 94/55 L 97 04/02/20 20:00 98.0 F 64 16 121/72 98 04/02/20 18:08 98.1 F 67 16 103/65 99 Weight Weight 173 lb 4.533 oz Most Recent Monitor Data Heart Rate from ECG 67 NIBP 109/69 NIBP BP-Mean 82 Respiration from ECG 18 SpO2 100 I&O: 04/01/20 04/02/20 04/03/20 06:59 06:59 06:59 Intake Total 510 1939 1004 Output Total 175 270 6891 Balance 210 1099 -56 Result Diagrams: 03/31/20 22:20 04/01/20 06:00 Hospitalist ROS - Review of Systems Constitutional: denies: chills, sweats Respiratory: denies: cough, dry, shortness of breath Cardiovascular: denies: chest pain, palpitations, orthopnea Gastrointestinal: denies: nausea, vomiting, abdominal pain - Medication Medications: Active Medications Generic Name Dose Route Start Last Admin Trade Name Freq PRN Reason Stop Dose Admin Acetaminophen 650 mg 04/01/20 01:15 04/02/20 08:51 Acetaminophen 325 Mg Tab PO 650 mg Q6H PRN Administration Headache/Fever/Mild Pain (1-3) Aspirin 325 mg 04/02/20 09:00 04/02/20 08:51 Aspirin 325 Mg Enteric Coated Tablet PO 325 mg DAILY MANJINDER Administration Atorvastatin Calcium 20 mg 04/01/20 21:00 04/02/20 21:31 Atorvastatin Calcium 20 Mg Tab PO 20 mg HS MANJINDER Administration Enoxaparin Sodium 40 mg 04/02/20 09:00 04/02/20 08:51 Enoxaparin Sodium 40 Mg/0.4 Ml Syringe SC 40 mg 0900 MANJINDER Administration Losartan Potassium 25 mg 04/01/20 09:00 04/02/20 08:51 Losartan 25 Mg Tab PO 25 mg DAILY MANJINDER Administration Sodium Chloride 10 ml 04/01/20 09:00 04/02/20 21:31 Flush - Normal Saline 10 Ml Syringe IVF 10 ml Q12HR MANJINDER Administration - Exam General Appearance: NAD, awake alert Neck: no JVD Heart: RRR, no murmur, no gallops, no rubs Respiratory: CTAB, no wheezes, no rales, no ronchi Gastrointestinal: soft, non-tender, non-distended, normal bowel sounds Extremities: no edema Musculoskeletal - other findings: R sided 4/5 elbow flexion and extension, knee flexion and extension Psychiatric: normal affect, normal behavior, A&O x 3 Hosp A/P - Plan Hosp A/P (1) TIA (transient ischemic attack) Code(s): G45.9 - TRANSIENT CEREBRAL ISCHEMIC ATTACK, UNSPECIFIED Status: Acute (2) Syncope Code(s): R55 - SYNCOPE AND COLLAPSE Status: Acute (3) HTN (hypertension) Code(s): I10 - ESSENTIAL (PRIMARY) HYPERTENSION Status: Acute Qualifiers: Hypertension type: essential hypertension Qualified Code(s): I10 - Essential (primary) hypertension (4) Dyslipidemia Code(s): E78.5 - HYPERLIPIDEMIA, UNSPECIFIED Status: Acute (5) Hemiplegia affecting dominant side Code(s): G81.90 - HEMIPLEGIA, UNSPECIFIED AFFECTING UNSPECIFIED SIDE Status: Acute - Plan -abcd2 < 4; stop plavix, continue aspirin 81mg PO daily, statin increased to atorvastatin 80mg PO qhs -syncope - so far, studies -ve; etiology unknown; may be due to hypotension considering borderline hypotensive as inpatient; held losartan; may need heart monitor ELOS: 1 night
[2020-04-03] MEDS ORDERED: Atorvastatin Calcium 40 MG TAB PO SCH (04:11)
[2020-04-03] MEDS ORDERED: Clopidogrel Bisulfate 75 MG TAB PO SCH (09:00)
[2020-04-03] MEDS ORDERED: Aspirin 81 mg Enteric Coated Tablet PO SCH (09:00)
[2020-04-03] MEDS: Enoxaparin Sodium 40 MG/0.4 ML SYRINGE SC SCH (09:13)
[2020-04-03] MEDS: Losartan 25 MG TAB PO SCH (09:14)
[2020-04-03 12:20] LABS: HEX PHOS LA Tube 1 45.1 SEC; HEX PHOS LA Tube 2 42.6 SEC; Hexagonal Phospholipid Neut 2.4 SEC (0-8.0); Protein C Activity 102 % (78-152)
--- NOTE | 2020-04-03 13:02 | PDOC.NEUPN ---
- Subjective Encounter Date: 04/03/20 Subjective: Patient feels much better today. She is almost back to her baseline. - Objective Vital Signs & Weight: Vital Signs (12 hours) Temp Pulse Pulse Pulse Resp BP BP 04/03/20 11:31 97.8 F 67 16 04/03/20 09:16 74 74 120/71 113/77 04/03/20 07:44 98.4 F 74 14 04/03/20 04:00 97.6 F 67 16 04/03/20 01:58 BP BP BP Pulse Ox 04/03/20 11:31 107/64 111/64 107/64 98 04/03/20 09:16 04/03/20 07:44 108/67 95 04/03/20 04:00 97/52 L 96 04/03/20 01:58 97 Weight Weight 173 lb 4.533 oz Most Recent Monitor Data Heart Rate from ECG 67 NIBP 109/69 NIBP BP-Mean 82 Respiration from ECG 18 SpO2 100 I&O: 04/02/20 04/03/20 04/04/20 06:59 06:59 06:59 Intake Total 1939 1004 Output Total 840 1060 Balance 1099 -56 Result Diagrams: 03/31/20 22:20 04/01/20 06:00 Radiology Reviewed by me: Yes EKG Reviewed by me: Yes ROS - Review of Systems ROS unobtainable: due to mental status Constitutional: denies: fever, chills, sweats, weakness, malaise, other Eyes: denies: pain, vision change, conjunctivae inflammation, eyelid inflammation, redness, other ENT: denies: ear pain, ear discharge, nose pain, nose discharge, nose congestion, mouth pain, mouth swelling, throat pain, throat swelling, other Respiratory: denies: cough, dry, shortness of breath, hemoptysis, SOB with excertion, pleuritic pain, sputum, wheezing, other Cardiovascular: reports: no pertinent history Gastrointestinal: denies: nausea, vomiting, abdominal pain, diarrhea, constipation, melena, hematochezia, other Genitourinary: denies: dysuria, frequency, incontinence, hematuria, retention, other Musculoskeletal: denies: neck pain, shoulder pain, arm pain, back pain, hand pain, leg pain, foot pain, other Skin: denies: rash, lesions, sera, bruising, other Neurological: reports: weakness, numbness, incoordination, change in speech - Medication Medications: Active Medications Generic Name Dose Route Start Last Admin Trade Name Isaak PRN Reason Stop Dose Admin Acetaminophen 650 mg 04/01/20 01:15 04/02/20 08:51 Acetaminophen 325 Mg Tab PO 650 mg Q6H PRN Administration Headache/Fever/Mild Pain (1-3) Aspirin 81 mg 04/03/20 09:00 04/03/20 09:13 Aspirin 81 Mg Enteric Coated Tablet PO 81 mg DAILY MANJINDER Administration Enoxaparin Sodium 40 mg 04/02/20 09:00 04/03/20 09:13 Enoxaparin Sodium 40 Mg/0.4 Ml Syringe SC 40 mg 0900 MANJINDER Administration Losartan Potassium 25 mg 04/01/20 09:00 04/03/20 09:14 Losartan 25 Mg Tab PO Not Given DAILY MANJINDER Sodium Chloride 10 ml 04/01/20 09:00 04/03/20 09:42 Flush - Normal Saline 10 Ml Syringe IVF 10 ml Q12HR MANJINDER Administration Results - Labs Result Diagrams: 03/31/20 22:20 04/01/20 06:00 Lab results: WBC 13.1 thou/uL (4.8-10.8) H 03/31/20 22:20 Hgb 13.5 g/dL (12.0-16.0) 03/31/20 22:20 Hct 40.3 % (36.0-47.0) 03/31/20 22:20 MCV 91.7 fL (78.0-98.0) 03/31/20 22:20 Plt Count 380 thou/uL (130-400) 03/31/20 22:20 Neutrophils % 58.5 % (42.0-75.0) 03/31/20 22:20 Sodium 138 mmol/L (136-145) 04/01/20 06:00 Potassium 3.6 mmol/L (3.5-5.1) 04/01/20 06:00 Chloride 108 mmol/L (98-107) H 04/01/20 06:00 Carbon Dioxide 22 mmol/L (22-29) 04/01/20 06:00 BUN 10 mg/dL (7.0-18.7) 04/01/20 06:00 Creatinine 0.59 mg/dL (0.6-1.1) L 04/01/20 06:00 Glucose 119 mg/dL (70-105) H 04/01/20 06:00 Calcium 8.4 mg/dL (7.8-10.44) 04/01/20 06:00 Total Bilirubin 0.3 mg/dL (0.2-1.2) 04/01/20 06:00 AST 17 U/L (5-34) 04/01/20 06:00 ALT 20 U/L (8-55) 04/01/20 06:00 Alkaline Phosphatase 141 U/L (40-110) H 04/01/20 06:00 CK-MB (CK-2) 0.7 ng/mL (0-6.6) 03/31/20 22:20 Troponin I 0.027 ng/mL (< 0.028) 04/01/20 06:00 Serum Total Protein 6.6 g/dL (6.0-8.3) 04/01/20 06:00 Albumin 3.6 g/dL (3.5-5.0) 04/01/20 06:00 - Radiology Interpretation CT scan - head Status: image reviewed by me, report reviewed by me Additional Comment: No evidence of bleed post TPA. PN A/P (1) TIA (transient ischemic attack) Code(s): G45.9 - TRANSIENT CEREBRAL ISCHEMIC ATTACK, UNSPECIFIED Status: Acute (2) Dyslipidemia Code(s): E78.5 - HYPERLIPIDEMIA, UNSPECIFIED Status: Acute (3) HTN (hypertension) Code(s): I10 - ESSENTIAL (PRIMARY) HYPERTENSION Status: Acute Qualifiers: Hypertension type: essential hypertension Qualified Code(s): I10 - Essential (primary) hypertension (4) Hemiplegia affecting dominant side Code(s): G81.90 - HEMIPLEGIA, UNSPECIFIED AFFECTING UNSPECIFIED SIDE Status: Acute (5) Syncope Code(s): R55 - SYNCOPE AND COLLAPSE Status: Acute - Plan Daily Plan: PT/OT, speech therapy, DVT proph w/lovenox 41-year-old female with a history of prior prior stroke presented with acute onset worsening right-sided weakness and slurred speech. The symptoms almost resolved and patient is back to the baseline. She is status post TPA. Most likely transient ischemic attack. Haja's paralysis is also in the differential but low since EEG is is negative for underlying cortical irritability. MRI of the brain reviewed and was negative for acute intracranial pathology. CTA of the head and neck did not reveal any hemodynamically dynamically significant stenosis. EEG reviewed and was negative for underlying cortical irritability. Neurochecks every [address] noncontrast 24 hours post TPA is negative for bleed. Start aspirin and adding Plavix for secondary stroke prevention. Continue high intensity statin for secondary stroke prevention. Strict control of blood pressure and blood glucose. Telemetry Thrombosis panel since patient had stroke at young age is unremarkable. 2D echo completed. Left ventricular ejection fraction is 55 to 60%. No thrombus or PFO. PT/OT/speech. Plan discussed in detail with the patient and during MDR rounds.
[2020-04-03 14:28] VITALS: BP 101/62; TEMP 97.7
[2020-04-03] MEDS ORDERED: Lorazepam 2 MG/ML VIAL ONE (15:55)
[2020-04-03 17:58] LABS: Cardiolipin IgA Ab 4.7 APL-U/mL (<14 Negative); EliA APS New Method **** NEW METHOD ****
--- NOTE | 2020-04-04 01:32 | DIS ---
DATE OF ADMISSION: 03/31/2020 DATE OF DISCHARGE: 04/03/2020 HOSPITAL COURSE: Ms. Anderson is a 41-year-old female with medical history of CVA, hypertension, who presented with acute on chronic right-sided weakness and new dysarthria and syncope while coughing. She was diagnosed with TIA status post tPA, situational syncope. Brain imaging, heart monitoring, echo, CT angiography of the head were all negative. The patient was continued on aspirin based on an ABCD2 score lower than 4 and increased atorvastatin from 20 mg q.h.s. to 80 mg q.h.s. On the day of discharge, the patient was complaining of right-sided weakness that is her basic due to previous CVA. Otherwise, she had no complaints. PHYSICAL EXAMINATION: Please refer to the progress note on the day of discharge. MEDICATION LIST: New medications: No new medications. Modified medications: Atorvastatin was increased from 20 mg q.h.s. to 80 mg q.h.s. Continued medications: Aspirin. Discontinued medications: Losartan due to borderline hypotension and syncope. Job ID: [id number]
== END 2020-04-03 17:00 | disposition home or self-care (01) | DRG 62 ==
LOC: ERS 21:56 → CCU 23:45 → 2SE 04-02 18:03
PROVIDERS: ADMIT Internal Medicine; ATTEND Internal Medicine
DX: G45.9 Transient cerebral ischemic attack, unspecified (principal); R47.01 Aphasia; I69.351 Hemiplegia and hemiparesis following cerebral infarction affecting right dominant side; I10 Essential (primary) hypertension; R47.1 Dysarthria and anarthria; R29.709 NIHSS score 9; R40.2412 Glasgow coma scale score 13-15, at arrival to emergency department; R73.9 Hyperglycemia, unspecified; E78.5 Hyperlipidemia, unspecified; D72.829 Elevated white blood cell count, unspecified; Z79.82 Long term (current) use of aspirin; Z88.0 Allergy status to penicillin; Z79.899 Other long term (current) drug therapy
CPT/HCPCS: 36415; 36416; 70450; 70496; 70498; 70551; 71045; 80053; 80061; 81240; 81241; 82553; 83036; 83090; 84146; 84484; 85025; 85240; 85300; 85303; 85305; 85307; 85379; 85598; 85610; 85730; 86147; 86850; 86900; 86901; 93005; 93306; 95712; 95816; 95819; 95957; J1650; J2060; J2997; Q9967